=== PATIENT | male | born 1950 | race Native Hawaiian/Other Pacific Islander ===

== ENCOUNTER 2016-07-23 12:25 | Day surgery (SDC) | payer OTHER ==
[~2016-07-23 12:25] MED LIST: ATEN25TA21 PO; HYZAAR1 TA1 PO; HYZAAR1 TA2 PO; METF500T PO; TRAM50TA PO
== END 2016-07-23 15:15 | disposition home or self-care (01) ==
LOC: OR 12:25
PROC: 08RJ3JZ Replacement of Right Lens with Synthetic Substitute, Percutaneous Approach (ICD-10-PCS; principal; 2016-07-23)
DX: H25.811 Combined forms of age-related cataract, right eye (principal)
CPT/HCPCS: 66984; V2632

== ENCOUNTER 2016-08-20 07:44 | Day surgery (SDC) | payer OTHER ==
[~2016-08-20] VITALS: Ht 30.5 cm; Wt 0.5 kg
== END 2016-08-20 09:30 | disposition home or self-care (01) ==
LOC: OR 07:44
PROC: 08RK3JZ Replacement of Left Lens with Synthetic Substitute, Percutaneous Approach (ICD-10-PCS; principal; 2016-08-20)
DX: H25.812 Combined forms of age-related cataract, left eye (principal)
CPT/HCPCS: 66984; J0171; V2632

== ENCOUNTER 2016-11-26 09:29 | Outpatient (CLI) | payer OTHER ==
[2016-11-26 09:52] LABS: PLATELET COUNT 258 K/uL (142-355)
[2016-11-26 10:39] LABS: POTASSIUM 4.2 mmol/L (3.6-5.2); SODIUM 140 mmol/L (136-145)
== END 2016-11-26 10:30 | disposition home or self-care (01) ==
LOC: LABW 09:29
PROVIDERS: Internal Medicine
DX: E11.9 Type 2 diabetes mellitus without complications (principal); Z12.5 Encounter for screening for malignant neoplasm of prostate; R97.20 Elevated prostate specific antigen [PSA]
CPT/HCPCS: 36415; 80053; 80061; 81000; 82043; 82570; 83036; 84153; 84443; 85027

== ENCOUNTER 2017-01-24 09:58 | Outpatient (CLI) | payer OTHER | END 2017-01-24 11:00 | disposition home or self-care (01) | LOC: RAD 09:58 | DX: R91.1 Solitary pulmonary nodule (principal) ==

== ENCOUNTER 2017-05-29 08:04 | Outpatient (CLI) | payer OTHER ==
[2017-05-29 08:28] LABS: POTASSIUM 4.3 mmol/L (3.6-5.2); SODIUM 136 mmol/L (136-145)
== END 2017-05-29 09:05 | disposition home or self-care (01) ==
LOC: LABW 08:04
PROVIDERS: Internal Medicine
DX: E11.9 Type 2 diabetes mellitus without complications (principal)
CPT/HCPCS: 36415; 80053; 80061; 83036

== ENCOUNTER 2017-08-27 15:48 | Outpatient (CLI) | payer OTHER | END 2017-08-27 20:04 | disposition home or self-care (01) | LOC: RAD 15:48 | DX: R05 Cough (principal); K64.0 First degree hemorrhoids ==

== ENCOUNTER 2017-09-05 08:46 | Outpatient (CLI) | payer OTHER | END 2017-09-05 22:55 | disposition home or self-care (01) | LOC: LABW 08:46 | DX: K64.0 First degree hemorrhoids (principal) | CPT/HCPCS: 82272 ==

== ENCOUNTER 2017-09-17 11:49 | Outpatient (CLI) | payer OTHER | END 2017-09-17 22:54 | disposition home or self-care (01) | LOC: RAD 11:49 | DX: R59.0 Localized enlarged lymph nodes (principal) ==

== ENCOUNTER 2017-12-05 09:23 | Outpatient (CLI) | payer OTHER ==
[2017-12-05 09:44] LABS: PLATELET COUNT 250 K/uL (142-355)
== END 2017-12-05 20:40 | disposition home or self-care (01) ==
LOC: LABW 09:23
PROVIDERS: Internal Medicine
DX: E11.9 Type 2 diabetes mellitus without complications (principal); Z79.899 Other long term (current) drug therapy; Z12.5 Encounter for screening for malignant neoplasm of prostate; Z00.00 Encounter for general adult medical examination without abnormal findings
CPT/HCPCS: 36415; 80053; 80061; 81000; 83036; 84153; 84443; 85027

== ENCOUNTER 2018-01-11 22:05 | Emergency (ER) | payer OTHER ==
[~2018-01-11] VITALS: Ht 177.8 cm; Wt 106.6 kg
[2018-01-11] MEDS ORDERED: MYRBETRIQ25 MG PO (22:16)
[2018-01-11] MEDS ORDERED: HYZAAR1 TA1 PO (22:18)
[2018-01-11] MEDS ORDERED: FINASTERIDE5 MG PO (22:19)
[2018-01-11] MEDS ORDERED: TAMS0.4C PO (22:21)
[2018-01-11] MEDS ORDERED: ASPIR-LOW81 MG PO (22:23)
[2018-01-11] MEDS ORDERED: MELOXICAM15 MG PO (22:23)
[2018-01-11] MEDS ORDERED: ACCOLATE10 MG PO (22:24)
[2018-01-11 23:07] LABS: PLATELET COUNT 233 K/uL (142-355)
[2018-01-11 23:30] VITALS: BP 134/68; TEMP 98
== END 2018-01-11 23:38 | disposition home or self-care (01) ==
LOC: ED 22:05
PROVIDERS: Allergy & Immunology
DX: K64.4 Residual hemorrhoidal skin tags (principal)
CPT/HCPCS: 36415; 82272; 85027; 99283

== ENCOUNTER 2018-05-13 08:39 | Outpatient (CLI) | payer OTHER ==
[~2018-05-13 08:39] MED LIST changes: +ACCOLATE10 MG PO; +ASPIR-LOW81 MG PO; +FINASTERIDE5 MG PO; +MELOXICAM15 MG PO; +MYRBETRIQ25 MG PO; +TAMS0.4C PO
[2018-05-13 09:25] LABS: POTASSIUM 4.3 mmol/L (3.6-5.2)
== END 2018-05-13 21:01 | disposition home or self-care (01) ==
LOC: LABW 08:39
PROVIDERS: Internal Medicine
DX: E78.5 Hyperlipidemia, unspecified (principal); E11.9 Type 2 diabetes mellitus without complications
CPT/HCPCS: 36415; 80053; 80061; 83036

== ENCOUNTER 2018-10-08 12:55 | Outpatient (CLI) | payer OTHER | END 2018-10-08 20:14 | disposition home or self-care (01) | LOC: LABW 12:55 | DX: M17.0 Bilateral primary osteoarthritis of knee (principal) | CPT/HCPCS: 36415; 85651; 86038; 86140; 86430 ==

== ENCOUNTER 2019-06-08 07:39 | Outpatient (CLI) | payer OTHER | END 2019-06-08 20:11 | disposition home or self-care (01) | LOC: CT 07:39 | DX: R10.31 Right lower quadrant pain (principal); K57.90 Diverticulosis of intestine, part unspecified, without perforation or abscess without bleeding | CPT/HCPCS: 36415; 82565; 84520; Q9963 ==

== ENCOUNTER 2020-01-13 12:12 | Outpatient (CLI) | payer OTHER ==
[2020-01-13 13:02] LABS: PLATELET COUNT 247 K/uL (142-355)
[2020-01-13 13:25] LABS: POTASSIUM 4.3 mmol/L (3.6-5.2)
== END 2020-01-13 19:51 | disposition home or self-care (01) ==
LOC: LABW 12:12
PROVIDERS: Internal Medicine
DX: Z00.00 Encounter for general adult medical examination without abnormal findings (principal); Z13.6 Encounter for screening for cardiovascular disorders; Z12.2 Encounter for screening for malignant neoplasm of respiratory organs; Z12.5 Encounter for screening for malignant neoplasm of prostate; E11.9 Type 2 diabetes mellitus without complications; K76.0 Fatty (change of) liver, not elsewhere classified; J84.10 Pulmonary fibrosis, unspecified; I70.0 Atherosclerosis of aorta
CPT/HCPCS: 36415; 80053; 80061; 81000; 83036; 84153; 84439; 84443; 85027; G0297-TC

== ENCOUNTER 2020-02-08 17:05 | Outpatient (CLI) | payer OTHER | END 2020-02-08 19:27 | disposition home or self-care (01) | LOC: LAB 17:05 | PROVIDERS: Internal Medicine | DX: K76.0 Fatty (change of) liver, not elsewhere classified (principal); R79.89 Other specified abnormal findings of blood chemistry | CPT/HCPCS: 80061; 80076 ==

== ENCOUNTER 2020-07-15 07:14 | Outpatient (CLI) | payer OTHER ==
[2020-07-15 07:32] LABS: PLATELET COUNT 251 K/uL (142-355)
== END 2020-07-15 22:55 | disposition home or self-care (01) ==
LOC: LABW 07:14
PROVIDERS: ATTEND Internal Medicine
DX: E11.9 Type 2 diabetes mellitus without complications (principal)
CPT/HCPCS: 36415; 80053; 80061; 81000; 82043; 82570; 83036; 84439; 84443; 85027

== ENCOUNTER 2021-01-12 10:44 | Outpatient (CLI) | payer OTHER | END 2021-01-12 22:05 | disposition home or self-care (01) | LOC: RAD 10:44 | PROVIDERS: ATTEND Nurse Practitioner Family | DX: E55.9 Vitamin D deficiency, unspecified (principal); E56.8 Deficiency of other vitamins; M06.4 Inflammatory polyarthropathy; M85.89 Other specified disorders of bone density and structure, multiple sites ==

== ENCOUNTER 2021-02-08 08:55 | Outpatient (CLI) | payer OTHER | END 2021-02-08 19:05 | disposition home or self-care (01) | LOC: CT 08:55 | PROVIDERS: ATTEND Internal Medicine | DX: Z12.2 Encounter for screening for malignant neoplasm of respiratory organs (principal) ==

== ENCOUNTER 2021-09-14 11:39 | Outpatient (CLI) | payer OTHER | END 2021-09-14 20:19 | disposition home or self-care (01) | LOC: RAD 11:39 | PROVIDERS: ATTEND Internal Medicine | DX: M54.59 Other low back pain (principal) ==

== ENCOUNTER 2021-10-06 11:07 | Outpatient (CLI) | payer OTHER ==
[2021-10-06 11:44] LABS: PLATELET COUNT 236 K/uL (142-355)
[2021-10-06 12:19] LABS: POTASSIUM 4.2 mmol/L (3.6-5.2)
== END 2021-10-06 20:32 | disposition home or self-care (01) ==
LOC: LAB 11:07
PROVIDERS: ATTEND Internal Medicine
DX: I10 Essential (primary) hypertension (principal); E11.9 Type 2 diabetes mellitus without complications
CPT/HCPCS: 80053; 80061; 81000; 83036; 84439; 84443; 85027

== ENCOUNTER 2022-01-19 11:07 | Outpatient (CLI) | payer OTHER ==
[2022-01-19 12:31] LABS: PLATELET COUNT 258 K/uL (142-355)
[2022-01-19 12:57] LABS: POTASSIUM 4.5 mmol/L (3.6-5.2)
== END 2022-01-19 21:56 | disposition home or self-care (01) ==
LOC: LAB 11:07
PROVIDERS: ATTEND Internal Medicine
DX: Z00.00 Encounter for general adult medical examination without abnormal findings (principal); E11.9 Type 2 diabetes mellitus without complications
CPT/HCPCS: 80053; 80061; 81002; 82043; 83036; 84443; 85027

== ENCOUNTER 2022-02-09 10:16 | Outpatient (CLI) | payer OTHER | END 2022-02-09 21:02 | disposition home or self-care (01) | LOC: RAD 10:16 | PROVIDERS: ATTEND Nurse Practitioner Family | DX: M06.4 Inflammatory polyarthropathy (principal); M54.51 Vertebrogenic low back pain; Z79.891 Long term (current) use of opiate analgesic ==

== ENCOUNTER 2022-10-15 08:07 | Outpatient (CLI) | payer OTHER | END 2022-10-15 19:33 | disposition home or self-care (01) | LOC: LABW 08:07 | PROVIDERS: ATTEND Internal Medicine | DX: E11.9 Type 2 diabetes mellitus without complications (principal) | CPT/HCPCS: 36415; 80061; 81002; 83036 ==

== ENCOUNTER → 2022-12-25 | Outpatient (CLI) | payer OTHER | LOC: RAD 09:06 | PROVIDERS: ATTEND Nurse Practitioner Family | DX: M06.4 Inflammatory polyarthropathy (principal); M18.0 Bilateral primary osteoarthritis of first carpometacarpal joints; M19.041 Primary osteoarthritis, right hand; M54.51 Vertebrogenic low back pain; Z79.891 Long term (current) use of opiate analgesic ==